=== PATIENT | male | born 1970 | race Caucasian/White ===

== ENCOUNTER 2022-10-14 07:09 | Outpatient (REF) | payer BC, SELFPAY ==
[2022-10-14 08:10] LABS: Estimated Average Glucose 217 mg/dL; Hemoglobin A1c % 9.2 %
[2022-10-14 08:33] LABS: Cholesterol 162 mg/dL; HDL Cholesterol 27 mg/dL; Triglycerides 630 mg/dL
== END 2022-10-14 07:10 | disposition home or self-care (01) ==
LOC: HO.LAB 07:09
PROVIDERS: PCP Internal Medicine; Visit Provider Internal Medicine
DX: E11.9 Type 2 diabetes mellitus without complications (principal); E78.5 Hyperlipidemia, unspecified; Z79.4 Long term (current) use of insulin
CPT/HCPCS: 36415; 80061; 83036

== ENCOUNTER 2022-10-22 15:04 | Outpatient (REF) | payer BC, SELFPAY ==
--- NOTE | ~2022-10-22 | US_ITS ---
EXAMINATION: US VENOUS ULTRASOUND WITH DOPPLER LOWER EXTREMITY, LEFT CLINICAL INFORMATION: Left leg swelling COMPARISON: None available. TECHNIQUE: Ultrasound of the deep veins is performed from the hip to the calf with compression sonography and color and pulse Doppler assessment. Spectral analysis with color-flow imaging is performed. FINDINGS: There is normal venous compression and respiratory variation and augmented flow. The visualized common femoral vein, superficial femoral vein, profunda femoral vein, popliteal vein, and the trifurcation region shows no evidence of deep venous thrombosis. There is no significant popliteal fossa cyst. If the patient's symptoms persist, followup ultrasound in 5 days 7 days might be of value to exclude proximal propagation from a non-visualized calf vein. US/US venous duplex LE LT IMPRESSION: No DVT demonstrated in the left lower extremity.
== END 2022-10-22 15:05 | disposition home or self-care (01) ==
LOC: HO.US 15:04
PROVIDERS: PCP Internal Medicine; Visit Provider Internal Medicine
DX: M79.605 Pain in left leg (principal)
CPT/HCPCS: 93971

== ENCOUNTER 2023-05-27 11:45 | Outpatient (REF) | payer BC, SELFPAY ==
--- NOTE | ~2023-05-27 | XR_ITS ---
EXAMINATION: XR BILATERAL KNEES XR BILATERAL HIPS CLINICAL INFORMATION: Bilateral hip and knee pain. COMPARISON: None available. TECHNIQUE: 4 views each of the bilateral knees. 7 views total of the bilateral hips. FINDINGS: Right Knee: No significant joint effusion. Tiny posterior patellar osteophytes. Tiny medial marginal osteophytes. Mild medial joint space narrowing. Left Knee: Trace joint effusion. Small quadriceps enthesophyte. Small tricompartmental marginal osteophytes. Kmvl-cn-yjrighmp medial joint space narrowing. Right Hip: Degenerative changes in the imaged lower lumbar spine. Degenerative changes with sclerosis in the bilateral sacroiliac joints. Mild degenerative changes in the right hip with joint space narrowing and hypertrophic change. Amorphous soft tissue calcifications adjacent to the left hip and iliac wing. Left Hip: Mild degenerative changes in the left hip with joint space narrowing and hypertrophic change. Amorphous soft tissue calcifications adjacent to the left hip and iliac wing. XR/XR knee RT 4V IMPRESSION: 1. Mild degenerative changes bilateral knees. 2. Degenerative changes in bilateral sacroiliac joints. 3. Degenerative changes in the imaged lower lumbar spine. 4. Amorphous soft tissue calcifications adjacent to the left hip and iliac wing. 5. Mild degenerative changes in the bilateral hips. 6. MRI could be considered for further evaluation if there is clinical concern for fracture or other underlying pathology.
--- NOTE | ~2023-05-27 | XR_ITS ---
EXAMINATION: XR BILATERAL KNEES XR BILATERAL HIPS CLINICAL INFORMATION: Bilateral hip and knee pain. COMPARISON: None available. TECHNIQUE: 4 views each of the bilateral knees. 7 views total of the bilateral hips. FINDINGS: Right Knee: No significant joint effusion. Tiny posterior patellar osteophytes. Tiny medial marginal osteophytes. Mild medial joint space narrowing. Left Knee: Trace joint effusion. Small quadriceps enthesophyte. Small tricompartmental marginal osteophytes. Rdvp-on-szfbidoq medial joint space narrowing. Right Hip: Degenerative changes in the imaged lower lumbar spine. Degenerative changes with sclerosis in the bilateral sacroiliac joints. Mild degenerative changes in the right hip with joint space narrowing and hypertrophic change. Amorphous soft tissue calcifications adjacent to the left hip and iliac wing. Left Hip: Mild degenerative changes in the left hip with joint space narrowing and hypertrophic change. Amorphous soft tissue calcifications adjacent to the left hip and iliac wing. XR/XR hip LT min 2V IMPRESSION: 1. Mild degenerative changes bilateral knees. 2. Degenerative changes in bilateral sacroiliac joints. 3. Degenerative changes in the imaged lower lumbar spine. 4. Amorphous soft tissue calcifications adjacent to the left hip and iliac wing. 5. Mild degenerative changes in the bilateral hips. 6. MRI could be considered for further evaluation if there is clinical concern for fracture or other underlying pathology.
--- NOTE | ~2023-05-27 | XR_ITS ---
EXAMINATION: XR BILATERAL KNEES XR BILATERAL HIPS CLINICAL INFORMATION: Bilateral hip and knee pain. COMPARISON: None available. TECHNIQUE: 4 views each of the bilateral knees. 7 views total of the bilateral hips. FINDINGS: Right Knee: No significant joint effusion. Tiny posterior patellar osteophytes. Tiny medial marginal osteophytes. Mild medial joint space narrowing. Left Knee: Trace joint effusion. Small quadriceps enthesophyte. Small tricompartmental marginal osteophytes. Jrwp-tu-tbcjtrwi medial joint space narrowing. Right Hip: Degenerative changes in the imaged lower lumbar spine. Degenerative changes with sclerosis in the bilateral sacroiliac joints. Mild degenerative changes in the right hip with joint space narrowing and hypertrophic change. Amorphous soft tissue calcifications adjacent to the left hip and iliac wing. Left Hip: Mild degenerative changes in the left hip with joint space narrowing and hypertrophic change. Amorphous soft tissue calcifications adjacent to the left hip and iliac wing. XR/XR knee LT 4V IMPRESSION: 1. Mild degenerative changes bilateral knees. 2. Degenerative changes in bilateral sacroiliac joints. 3. Degenerative changes in the imaged lower lumbar spine. 4. Amorphous soft tissue calcifications adjacent to the left hip and iliac wing. 5. Mild degenerative changes in the bilateral hips. 6. MRI could be considered for further evaluation if there is clinical concern for fracture or other underlying pathology.
--- NOTE | ~2023-05-27 | XR_ITS ---
EXAMINATION: XR BILATERAL KNEES XR BILATERAL HIPS CLINICAL INFORMATION: Bilateral hip and knee pain. COMPARISON: None available. TECHNIQUE: 4 views each of the bilateral knees. 7 views total of the bilateral hips. FINDINGS: Right Knee: No significant joint effusion. Tiny posterior patellar osteophytes. Tiny medial marginal osteophytes. Mild medial joint space narrowing. Left Knee: Trace joint effusion. Small quadriceps enthesophyte. Small tricompartmental marginal osteophytes. Iwty-ut-ohnjqziv medial joint space narrowing. Right Hip: Degenerative changes in the imaged lower lumbar spine. Degenerative changes with sclerosis in the bilateral sacroiliac joints. Mild degenerative changes in the right hip with joint space narrowing and hypertrophic change. Amorphous soft tissue calcifications adjacent to the left hip and iliac wing. Left Hip: Mild degenerative changes in the left hip with joint space narrowing and hypertrophic change. Amorphous soft tissue calcifications adjacent to the left hip and iliac wing. XR/XR hip RT w PEL1V IMPRESSION: 1. Mild degenerative changes bilateral knees. 2. Degenerative changes in bilateral sacroiliac joints. 3. Degenerative changes in the imaged lower lumbar spine. 4. Amorphous soft tissue calcifications adjacent to the left hip and iliac wing. 5. Mild degenerative changes in the bilateral hips. 6. MRI could be considered for further evaluation if there is clinical concern for fracture or other underlying pathology.
== END 2023-05-27 11:46 | disposition home or self-care (01) ==
LOC: HO.XRAY 11:45
PROVIDERS: PCP Internal Medicine; Visit Provider Internal Medicine
DX: M25.561 Pain in right knee (principal); M25.562 Pain in left knee; M25.552 Pain in left hip; M25.551 Pain in right hip
CPT/HCPCS: 73502; 73564

== ENCOUNTER 2023-06-03 14:04 | Outpatient (REF) | payer BC, SELFPAY ==
--- NOTE | ~2023-06-03 | XR_ITS ---
EXAMINATION: XR CHEST CLINICAL INFORMATION: Cough. History of Covid-19 infection. COMPARISON: None available. TECHNIQUE: 2 views of the chest were obtained. FINDINGS: Lungs are well-inflated. There appears to be a small linear opacity of atelectasis in the region of the lingula. Trachea is midline in position. No interstitial disease, consolidation or mass. No pleural effusion or pneumothorax. Cardiac silhouette and pulmonary vessels are normal in size. The mediastinum and harshal have normal contour. There is skeletal hyperostosis with presence of bulky flowing anterior ligament ossification of the thoracic spine. XR/XR chest 2V IMPRESSION: No acute cardiopulmonary abnormality. No radiographic evidence of pneumonia.
== END 2023-06-03 14:05 | disposition home or self-care (01) ==
LOC: HO.HMGCX 14:04
PROVIDERS: PCP Internal Medicine; Visit Provider Internal Medicine
DX: R05.9 Cough, unspecified (principal); U07.1 COVID-19
CPT/HCPCS: 71046

== ENCOUNTER 2023-09-22 06:01 | Outpatient (REF) | payer OTHER, SELFPAY ==
[2023-09-22 10:22] LABS: MANUAL DIFF FLAG NO
[2023-09-22 10:30] LABS: Basophils Percent Auto 0.5 % (0-2); Eosinophils Absolute Auto 0.2 X10*3/uL (0.0-0.4); Eosinophils Percent Auto 2.5 % (0-4); Hematocrit 47.8 % (42.0-52.0); Hemoglobin 16.1 g/dl (14.0-18.0); Imm Gran Abs Auto 0.06 X10*3/uL (0.00-0.03); Imm Gran Pct Auto 0.8 % (0.0-0.4); Lymphocytes Absolute Auto 2.3 X10*3/uL (1.2-4.9); Lymphocytes Percent Auto 29.2 % (20-40); Mean Corpuscular HGB Conc 33.7 g/dl (31.0-36.0); Mean Corpuscular Hemoglobin 30.6 pg (27.0-33.0); Mean Corpuscular Volume 90.7 fL (80.0-98.0); Mean Platelet Volume 10.7 fL (9.4-12.4); Monocytes Absolute Auto 0.5 X10*3/uL (0.1-1.2); Monocytes Percent Auto 6.2 % (2-11); Neutrophils Absolute Auto 4.7 x10*3/uL (2.0-8.3); Neutrophils Percent Auto 60.8 % (45-73); Platelet Count 219 X10*3/uL (160-400); Red Blood Count 5.27 X10*6/uL (4.60-5.80); Red Cell Distribution Width 13.9 % (11.0-16.0); White Blood Count 7.8 X10*3/uL (4.8-10.8)
[2023-09-22 11:08] LABS: Estimated Average Glucose 200 mg/dL; Hemoglobin A1c % 8.6 % (<6.0)
[2023-09-22 11:27] LABS: Prostate Specific Antigen 1.46 ng/mL (<0.05-4.0)
[2023-09-22 12:01] LABS: Alanine Aminotransferase 21 U/L (0-40); Albumin Level 4.4 g/dL (3.5-5.0); Alkaline Phosphatase 104 U/L (39-117); Anion Gap 16 (12-20); Aspartate Amino Transferase 16 U/L (5-37); Bilirubin Total 0.3 mg/dL (0.0-1.0); Blood Urea Nitrogen 16 mg/dL (9-16); Calcium 10.3 mg/dL (8.4-10.2); Carbon Dioxide 24 mmol/L (22-29); Chloride 102 mmol/L (96-108); Cholesterol 177 mg/dL (<200); Estimated Glomerular Filt Rate > 60; Glucose Random 182 mg/dL (60-115); HDL Cholesterol 35 mg/dL (>40); Potassium 4.3 mmol/L (3.3-5.1); Sodium 138 mmol/L (135-145); Total Protein 7.1 g/dL (6.5-8.0); Triglycerides 459 mg/dL (<150)
== END 2023-09-22 06:02 | disposition home or self-care (01) ==
LOC: HO.HMGCLDS 06:01
PROVIDERS: PCP Internal Medicine; Visit Provider Internal Medicine
DX: Z00.00 Encounter for general adult medical examination without abnormal findings (principal); Z12.5 Encounter for screening for malignant neoplasm of prostate; R53.83 Other fatigue; E78.00 Pure hypercholesterolemia, unspecified
CPT/HCPCS: 36415; 80053; 80061; 83036; 84153; 85025

== ENCOUNTER 2023-12-26 06:03 | Outpatient (REF) | payer OTHER, SELFPAY ==
[2023-12-26 10:52] LABS: Estimated Average Glucose 197 mg/dL; Hemoglobin A1c % 8.5 % (<6.0)
== END 2023-12-26 06:04 | disposition home or self-care (01) ==
LOC: HO.HMGCLDS 06:03
PROVIDERS: PCP Internal Medicine; Visit Provider Internal Medicine
DX: E11.9 Type 2 diabetes mellitus without complications (principal)
CPT/HCPCS: 36415; 83036

== ENCOUNTER 2024-01-14 09:02 | Outpatient (REF) | payer OTHER, SELFPAY ==
--- NOTE | ~2024-01-14 | XR_ITS ---
EXAMINATION: XR KNEE, RIGHT XR KNEE, LEFT CLINICAL INFORMATION: Right and left knee pain. COMPARISON: Right and left knee radiographs dated 05/27/2023. TECHNIQUE: AP and lateral views of the right and left knee. FINDINGS: Right knee: Tiny tricompartmental marginal osteophytes. No acute fracture or dislocation. No concerning lytic or blastic osseous lesion. Superior patellar enthesophyte. Trace joint effusion. Left knee: Zbjlwztu-et-jqpsmu medial compartment joint space narrowing. Tricompartmental marginal osteophytes. No acute fracture or dislocation. No concerning lytic or blastic osseous lesion. Superior patellar enthesophytes. Posterior loose body measuring up to 0.7 cm, unchanged. Trace joint effusion. XR/XR knee LT 2V IMPRESSION: RIGHT KNEE: Mild tricompartmental osteoarthritis slightly progressed. Trace joint effusion. LEFT KNEE: Tricompartmental osteoarthritis, most prominent within the medial compartment. Findings are slightly progressed when compared to the prior radiographs. Trace joint effusion. Electronically signed by: Elvis Thomas MD 01/20/2024 08:50 AM EDT
--- NOTE | ~2024-01-14 | XR_ITS ---
EXAMINATION: XR KNEE, RIGHT XR KNEE, LEFT CLINICAL INFORMATION: Right and left knee pain. COMPARISON: Right and left knee radiographs dated 05/27/2023. TECHNIQUE: AP and lateral views of the right and left knee. FINDINGS: Right knee: Tiny tricompartmental marginal osteophytes. No acute fracture or dislocation. No concerning lytic or blastic osseous lesion. Superior patellar enthesophyte. Trace joint effusion. Left knee: Vqstvrgh-nm-wdlvzr medial compartment joint space narrowing. Tricompartmental marginal osteophytes. No acute fracture or dislocation. No concerning lytic or blastic osseous lesion. Superior patellar enthesophytes. Posterior loose body measuring up to 0.7 cm, unchanged. Trace joint effusion. XR/XR knee RT 2V IMPRESSION: RIGHT KNEE: Mild tricompartmental osteoarthritis slightly progressed. Trace joint effusion. LEFT KNEE: Tricompartmental osteoarthritis, most prominent within the medial compartment. Findings are slightly progressed when compared to the prior radiographs. Trace joint effusion. Electronically signed by: Elvis Thomas MD 01/20/2024 08:50 AM EDT
== END 2024-01-14 09:03 | disposition home or self-care (01) ==
LOC: HO.HMGCX 09:02
PROVIDERS: PCP Internal Medicine; Visit Provider Internal Medicine
DX: M25.561 Pain in right knee (principal); M25.562 Pain in left knee
CPT/HCPCS: 73560

== ENCOUNTER 2024-04-05 06:32 | Outpatient (REF) | payer OTHER, SELFPAY ==
[2024-04-05 14:16] LABS: Estimated Average Glucose 194 mg/dL; Hemoglobin A1C 261.5938 umol/L; Hemoglobin A1c % 8.4 % (<6.0); Total Hemoglobin (HGBA1C) 3837.8608 umol/L
== END 2024-04-05 06:33 | disposition home or self-care (01) ==
LOC: HO.HMGCLDS 06:32
PROVIDERS: PCP Internal Medicine; Visit Provider Internal Medicine
DX: E11.9 Type 2 diabetes mellitus without complications (principal)
CPT/HCPCS: 36415; 83036

== ENCOUNTER 2024-07-10 07:38 | Outpatient (REF) | payer OTHER, SELFPAY ==
--- OUTSIDE RECORDS SUMMARY | 2024-07-10 07:41 | XMS_ITS | Patient Health Record ---
Author Organization [facility] Billing Info Address [address] [place], [place] [id number] Care Team Providers Care Tick Inspector Name Role Phone RUY MARSHALL Primary Care Provider Allergies No Known Allergies Reason For Referral No Information Medications Medication SIG (Take, Route, Frequency, Duration) Notes Start Date End Date Status Vitamin D3 Active Aspir-81 81 MG 1 tablet Orally Once a day Not-Taking MetFORMIN HCl ER 500 MG TAKE 1 TABLET BY MOUTH 4 TIMES DAILY Orally Four times a day for 90 days Active Basaglar KwikPen 100 UNIT/ML 80 units Subcutaneous Daily for 90 day(s) Active Vitamin E Active Triple Artesia-3-6-9 A ctive Gemfibrozil 600 MG 1 tablet 30 minutes before morning and evening meals Orally Twice a day for 90 day(s) 05/06/2021 Active Melatonin Active GlipiZIDE XL 5 MG 1 -2 tab Orally Once a day Not-Taking Magnesium 500 MG 1 capsule with a pepe l Orally QHS Active Aleve 220 MG 1 cap Orally qd N ot-Taking Tylenol 8 Hour 650 MG 2 tablets as neede d Orally Active Testim 50 MG/5GM (1%) 1 application to s kin in the morning Transdermal Once a day for 90 days 08/15/2017 Not-Takin g Vitamin B12 Active Diclofenac Sodium 75 MG 1 tablet with fo od or milk Orally Twice a day Not-Taki ng Amoxicillin-Pot Clavulanate 875-125 MG 1 tablet Orally every 12 hrs for 10 day(s) 05/07/2021 Active Fenofibrate 160 MG 1 tablet Orally QHS for 30 day(s) Not-Taking Claritin 10 MG 1 tablet Orally Once a day Active Meloxicam 15 MG 1 tablet Orally Kenny y for 90 days Active FreeStyle Edmund 14 Day Manley - as directed As directed for 30 day(s) 02/17/2021 Active Freestyle Edmund 14 Day Sensor ---- as directed As directed for 30 day(s) 02/17/2021 Active Lantus SoloStar 100 UNIT/ML as directedy, e11.8 Subcutaneous 80 units SUB Q daily for 90 day(s) 08/05/2021 Active Testosterone Cypionate 200 MG/ML 1 ml Injection every 2 weeks for 90 days 08/12/2021 Active Vitamin C Active Victoza 18 MG/3ML ADMINISTER 1.8 MG UN CHLOÉ THE SKIN DAILY for 30 Active Losartan Potassium 100 MG 1 tablet Orally Daily for 90 days Active BuPROPion HCl ER (SR) 150 MG TAKE 1 TABLET BY MOUTH TWICE DAILY for 90 Active FreeStyle Lite Test - as directed In Vit ro Daily for 90 day(s) 03/02/2021 Active Immunizations Vaccine Route Administration Date Status Comme [facility] zFLU 4V (FLUZONE QUAD), 3 YRS+, NO PRES - ALL PAYORS IM Intramuscular 03/21/2017 Administered Social History Tobacco Use: Social History Observation Description Date Details (start date - stop date) Former Smoker NA - NA Tobacco Status: Question Answer Notes Patient is a former smoker Problems Problem Type SNOMED Code ICD Code Onset Dates Problem Status W/U Status Risk Notes Problem 731825443 Morbid (severe) obesity due to excess calories (E66.01) Active confirmed Problem 914180442 Hypertriglycerid emia (E78.1) Active confirmed Problem 77028524 Hypogonadism in male (E29.1) Active confirmed Problem 37056387 Essential hypert ension (I10) Active confirmed Problem 03654856 Obstructive slee p apnea (G47.33) Active confirmed Problem 79226644 Diabetes mellitu s with complication (E11.8) Active confirmed Problem 430496583 Mixed dyslipidem ia (E78.2) Active confirmed Problem 563903003 Generalized osteoarthritis (M15.9) Active confirmed Problem 54823081 Tobacco dependen cy (F17.200) Active confirmed Problem 05921422 Allergic rhiniti s, unspecified chronicity, unspecified seasonality, unspecified trigger (J30.9) Active confirmed Problem 103807943 Type 2 diabetes mellitus without complication, unspecified 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) Active confirmed Plan Of Treatment No Information Insurance Providers Payer Name Payer Address Payer Phone Subscriber Number Group Number Insured Name Patient Relationship to Insured Coverage Start Date Coverage End Date [facility] [address] [facility], [place] [id number] [place] Self - patient is the insured 2 5 Medical (General) History Medical History History ICD Code hypertension diabetes mellitus allergies mixed dyslipidemia arthritis tobacco dependency obesity paroxysmal atrial fibrillation obstructive sleep apnea Surgical History Surgery Date(Month/Year) 12 ear surgeries (tubes, tympanic membra royer, etc.) 73-84 tonillectomy, adenoidectomy 1974 appendectomy 1982
--- OUTSIDE RECORDS SUMMARY | 2024-07-10 07:41 | XMS_ITS | Continuity of Care Document ---
Author Organization [facility] Address [address] [facility] [address] [place] [address] Phone Care Team Providers Care Securities Underwriter Name Role Phone Bryan NIELSON MD, Abhi Unavailable Unavailable Allergies, Adverse Reactions, Alerts Substance Reaction Status Criticality No Known Allergies Active No Inform ation Medications Medication Instructions Dosage Effective Dates (start - stop) Status Comments Benigno Lundy U-100 Insulin 100 unit/mL (3 mL) subcutaneous inject 17 Unit by subcutaneous route every evening as per insulin protocol 17 Unit - Active fenofibrate 160 mg tablet take 1 tablet by oral route every day 160 MG - Active Chantix 1 mg tablet take 1 tablet by ora l route 2 times every day with glass of water after meals 1 MG - Active aspirin 81 mg tablet,delayed release take 1 tablet by oral route every day 81 MG - Active metformin 500 mg tablet take 1 tablet by oral route every day with morning and evening meals 500 MG - Active Victoza 2-Nagi 0.6 mg/0.1 mL (18 mg/3 mL) subcutaneous pen injector inject (1.2MG) by subcutaneous route every day 1.2 MG - Active losartan 100 mg tablet take 1 tablet by oral route every day 100 MG - Active Procedures Procedure Date Same Day PostOp Visit CATARACT SURG W/IOL, 1 STAGE Anes- Eye; Lens Surg FACILITY Surgery Pre-Payment Determ Refractive State Post Op 020 Dilated Exam Performed And Documented De IOL Master REFRACTION Oph Serv: Med Exam; Comp New Advance Directives Directive Yes / No Effective Date File Name No Information Encounters Encounter Description Practice Location Reason(s) For Visit Diagnoses Date Provider Providers Copied on Encounter [facility] [place], [id number] [place] [address], [id number] , tel:[phone] [facility] No Information 4 Bryan Moe. [address], [id number], . tel:[phone] [facility], [address] [place] [address], [id number] , [phone] [facility] Presence of intraocular lens 0 No Information Referring Provider: Abhi Reid, [address] [place] [address], [id number] . tel:[phone] [facility], [address] [place] [address], [id number] , [phone] [facility] No Information 0 Bryan Moe. [address], [id number], . tel:[phone] Referring Provider: Chikis Patel, [address] [place] [address], [id number] . tel:[phone] [facility] [place], [address] [place] [address], [id number] , [phone] [facility] No Information 0 [facility]. [address] [place] [address], [id number], . tel:[phone] Referring Provider: Abhi Reid, [address] [place] [address], [id number] . tel:[phone] [facility], [address], [address] [place] [address] , tel:[phone] [employer] [place] No Information 0 Bryan Cheng [address] [place] [address], [address] [place] [address], . tel:[phone] Referring Provider: Abhi Reid, [address] [place] [address], [address] [place] [address] . tel:[phone] [facility], [address] [place] [address], [address] [place] [address] , tel:[phone] [facility] No Information 0 Bryan Cheng [address] [place] [address], [address] [place] [address], . tel:[phone] Referring Provider: Abhi Reid, [address] [place] [address], [id number] . tel:[phone] [facility], [address] [place] [address], [address] [place] [address] , [phone] [facility] Blurry vision (chief complaint) Glare (chief complaint) Presbyopia of both eyesType 2 diabetes mellitus without complication, without long-term current use of insulinPosterior subcapsular age-related cataract of both eyes 0-201 [address] [place] [address], [address] [place] [address], . tel:[phone] Referring Provider: Abhi Reid, [address] [place] [address], [id number] . tel:[phone] Family History Family Member Type Diagnosis Age At Onset Father Problem (finding) Mother Problem (finding) Payers Payer name Insurance type Covered green party ID Authoriza tiedwina(s) [facility] [id number] Social History Type Description Quantity Date Captured Comments Sex Male Smoking Status No Information Chief Complaint And Reason For Visit No Information Reason For Referral Reason For Referral No Information Plan Of Treatment Date Type Action Status Patient Education Cataracts: Care Instruc tions completed Patient Education Stopping Smoking: Care Instructions completed History Of Present Illness Encounter Date Complaint History Of Prese nt Illness Blurry vision Patient presents for evaluation of blurry distance and near vision, right eye more than left eye, 6 months. Reports difficulty reading tablet and must hold it closer to face to read it. Reports difficulty reading street signs from a distance when day driving. Glare Patient presents for evaluation of glare, right eye, more than left eye 6 months. Reports starburst make it uncomfortable to see the road when driving at night. Functional Status Date Functional Assessmen t No Information Instructions Date Instruction Additional Infor mation See summary sheet Related to Pos terior subcapsular age-related cataract of both eyes Impression/Plan Related to Presb yopia of both eyes Impression/Plan Related to Type 2 diabetes mellitus without complication, without long-term current use of insulin Impression/Plan Related to Poste rior subcapsular age-related cataract of both eyes Assessments Type Assessment Date No Information Patient Care Teams Name Effective Dates (start - stop) Status Members No Information
[2024-07-10 10:07] LABS: Estimated Average Glucose 214 mg/dL; Hemoglobin A1C 320.2453 umol/L; Hemoglobin A1c % 9.1 % (<6.0); Total Hemoglobin (HGBA1C) 4233.9939 umol/L
== END 2024-07-10 07:39 | disposition home or self-care (01) ==
LOC: HO.HMGCLDS 07:38
PROVIDERS: PCP Internal Medicine; Visit Provider Internal Medicine
DX: E11.9 Type 2 diabetes mellitus without complications (principal)
CPT/HCPCS: 36415; 83036